=== PATIENT | female | born 1980 | race Caucasian/White ===

== ENCOUNTER 2016-11-08 20:21 | Emergency (ER) | payer OTHER ==
[~2016-11-08] VITALS: Ht 172.7 cm; Wt 95.3 kg
[~2016-11-08 20:21] MED LIST: DOXYCYCLINE 10100 MG PO; NORCO 5-325 TA1 EACH PO; PROMETHAZINE-C120 ML PO; PROVENTIL HFA6.7 G1 INH; ZPAK PO
[2016-11-08 20:22] VITALS: BP 132/84
[2016-11-08] MEDS ORDERED: PENICILLIN V P500 MG PO (20:53)
[2016-11-08] MEDS ORDERED: NAPROSYN500 MG PO (20:53)
== END 2016-11-08 21:19 | disposition home or self-care (01) ==
LOC: ER 20:21
DX: K05.10 Chronic gingivitis, plaque induced (principal); K00.7 Teething syndrome; F15.90 Other stimulant use, unspecified, uncomplicated; F17.210 Nicotine dependence, cigarettes, uncomplicated

== ENCOUNTER 2019-12-19 12:17 | Emergency (ER) | payer OTHER ==
[~2019-12-19] VITALS: Ht 175.3 cm; Wt 63.5 kg
[~2019-12-19 12:17] MED LIST changes: +NAPROSYN500 MG PO; +PENICILLIN V P500 MG PO
[2019-12-19 12:26] VITALS: BP 121/71
[2019-12-19] MEDS ORDERED: NAPROSYN500 MG PO (12:40)
[2019-12-19] MEDS ORDERED: PENICILLIN V P500 MG PO (12:40)
== END 2019-12-19 13:00 | disposition home or self-care (01) ==
LOC: ER 12:17
DX: K05.00 Acute gingivitis, plaque induced (principal); K02.9 Dental caries, unspecified; F17.210 Nicotine dependence, cigarettes, uncomplicated; Z79.2 Long term (current) use of antibiotics; Z79.899 Other long term (current) drug therapy